=== PATIENT | male | born 1945 | race Caucasian/White ===

== ENCOUNTER 2024-08-24 08:51 | Outpatient (CLI) | payer MEDICARE | END 2024-08-24 08:52 | disposition home or self-care (01) | LOC: CSHSLEEP 08:51 | PROVIDERS: ATTEND Registered Nurse | DX: G47.33 Obstructive sleep apnea (adult) (pediatric) (principal); R53.83 Other fatigue; E66.9 Obesity, unspecified; Z68.31 Body mass index [BMI] 31.0-31.9, adult; R06.83 Snoring; I10 Essential (primary) hypertension | CPT/HCPCS: 95800 ==